=== PATIENT | female | born 1940 | race Caucasian/White ===

== ENCOUNTER 2016-10-01 16:35 | Observation (INO) | payer OTHER ==
[2016-10-01] MEDS ORDERED: HYDROmorphone 1 MG/ML Syringe IVPUSH PRN (17:54)
[2016-10-01] MEDS ORDERED: Acetaminophen 325 MG Tab PO PRN (17:54)
[2016-10-01] MEDS ORDERED: Magnesium Hydroxide 400 MG/5 ML Susp 30 ML Cup PO PRN (17:54)
[2016-10-01] MEDS ORDERED: Sodium Chloride 0.9% 10 ML Syringe FLUSH PRN (17:54)
[2016-10-01] MEDS ORDERED: Docusate Sodium 100 MG Cap PO PRN (17:54)
[2016-10-01] MEDS: Acetaminophen/HYDROcodone 325-5 MG Tab PO PRN (18:48)
[2016-10-01] MEDS: Ketorolac 30 MG/ML SDV IVPUSH PRN (19:53)
[2016-10-01] MEDS ORDERED: LORazepam 0.5 MG Tab PO PRN (20:18)
[2016-10-01] MEDS ORDERED: Zolpidem 5 MG Tab PO PRN (20:18)
[2016-10-02] MEDS: Ketorolac 30 MG/ML SDV IVPUSH PRN (07:54)
[2016-10-02] MEDS: Acetaminophen/HYDROcodone 325-5 MG Tab PO PRN (07:55)
[2016-10-02] MEDS ORDERED: Ketorolac 30 MG/ML SDV IVPUSH PRN (08:39)
[2016-10-02] MEDS: Sertraline 100 MG Tab PO SCH (09:08)
[2016-10-02] MEDS: Lisinopril 10 MG Tab PO SCH (09:08)
[2016-10-02] MEDS: Hydrochlorothiazide 12.5 MG Cap PO SCH (09:09)
[2016-10-02] MEDS: metFORMIN 500 MG Tab.ER PO SCH (09:09)
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
[2016-10-03] MEDS: Acetaminophen/HYDROcodone 325-5 MG Tab PO PRN ×2 (03:16→07:53)
[2016-10-03] MEDS: metFORMIN 500 MG Tab.ER PO SCH (07:54)
[2016-10-03] MEDS: Lisinopril 10 MG Tab PO SCH (07:55)
[2016-10-03] MEDS: Hydrochlorothiazide 12.5 MG Cap PO SCH (07:56)
[2016-10-03] MEDS: Sertraline 100 MG Tab PO SCH (07:56)
[2016-10-03 10:17] VITALS: BP 140/73
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
== END 2016-10-03 09:50 | disposition home or self-care (01) ==
LOC: CC.DI 16:35 → CC.MS 17:50
PROVIDERS: ADMIT Physician Assistant Medical; ATTEND Family Medicine
DX: S09.90XA Unspecified injury of head, initial encounter (principal); M54.5 Low back pain; R07.89 Other chest pain; Z88.1 Allergy status to other antibiotic agents; I10 Essential (primary) hypertension; G47.33 Obstructive sleep apnea (adult) (pediatric); Z90.49 Acquired absence of other specified parts of digestive tract; Z90.710 Acquired absence of both cervix and uterus; Z98.51 Tubal ligation status; Z96.659 Presence of unspecified artificial knee joint; Z72.0 Tobacco use; Z79.84 Long term (current) use of oral hypoglycemic drugs; Z79.899 Other long term (current) drug therapy; V87.7XXA Person injured in collision between other specified motor vehicles (traffic), initial encounter
CPT/HCPCS: 36415; 70450; 71020; 72125; 72128; 72131; 80048; 85025; 96374; 96376; 97161; A9270; G0378; J1885

== ENCOUNTER 2018-10-23 11:48 | Observation (INO) | payer MEDICARE, OTHER ==
[2018-10-23 12:13] LABS: CHLORIDE,CL 97 mEq/L (98-106); SODIUM,NA 134 mEq/L (136-145)
[2018-10-23] MEDS ORDERED: Ondansetron 4 MG/2 ML SDV IV ONE (12:15)
[2018-10-23] MEDS ORDERED: Sodium Chloride 0.9% 1,000 ML IV ONE (12:15)
[2018-10-23] MEDS ORDERED: Magnesium Sulfate/D5W 2 GM in Premix Bag 1 BAG IV ONE (13:21)
[2018-10-23] MEDS ORDERED: Ondansetron 4 MG/2 ML SDV IV PRN (13:21)
[2018-10-23] MEDS ORDERED: Acetaminophen 325 MG Tab PO PRN (13:21)
[2018-10-23] MEDS ORDERED: LORazepam 0.5 MG Tab PO PRN (13:27)
[2018-10-23] MEDS ORDERED: Zolpidem 5 MG Tab PO PRN (13:27)
[2018-10-23] MEDS: Pantoprazole 40 MG Vial IVPUSH SCH (14:28)
[2018-10-23] MEDS: Insulin Lispro 100 Units/ML 3 ML Vial SUBCUT SCH ×2 (17:28→20:45)
[2018-10-23] MEDS: Sodium Chloride 0.9% 1,000 ML IV SCH ×2 (23:30→23:31)
[2018-10-24] MEDS: Sodium Chloride 0.9% 1,000 ML IV SCH (06:17)
[2018-10-24] MEDS ORDERED: Non-Formulary Medication 1 Each (Losartan/Hydrochlorothiazide 1 TAB) PO SCH (08:00)
[2018-10-24 08:02] LABS: CHLORIDE,CL 105 mEq/L (98-106); SODIUM,NA 139 mEq/L (136-145)
[2018-10-24] MEDS: Losartan 25 MG Tab PO SCH (08:54)
[2018-10-24] MEDS: Hydrochlorothiazide 12.5 MG Cap PO SCH (08:55)
[2018-10-24] MEDS: Sertraline 100 MG Tab PO SCH (08:55)
[2018-10-24] MEDS: Insulin Lispro 100 Units/ML 3 ML Vial SUBCUT SCH ×4 (08:55→20:14)
[2018-10-24] MEDS: Pantoprazole 40 MG Vial IVPUSH SCH (09:29)
--- NOTE | 2018-10-24 14:57 | PCM.PN ---
- General Info Date of Service: 10/24/18 Functional Status: Reports: Pain Controlled, Tolerating Diet, Ambulating - Review of Systems General: Reports: No Symptoms HEENT: Reports: No Symptoms Pulmonary: Reports: No Symptoms Cardiovascular: Reports: No Symptoms Gastrointestinal: Reports: No Symptoms Genitourinary: Reports: No Symptoms Musculoskeletal: Reports: No Symptoms Skin: Reports: No Symptoms Neurological: Reports: No Symptoms Psychiatric: Reports: No Symptoms - Patient Data Vitals - Most Recent: Last Vital Signs Temp 97.5 F 10/24/18 12:00 Pulse 82 10/24/18 12:00 Resp 18 10/24/18 12:00 BP 141/56 H 10/24/18 12:00 Pulse Ox 99 10/24/18 12:00 Weight - Most Recent: 128 lb I&O - Last 24 Hours: Intake & Output 10/23/18 10/24/18 10/24/18 22:59 06:59 14:59 Intake Total 848 Balance 848 Lab Results Last 24 Hours: Laboratory Results - last 24 hr 10/23/18 10/23/18 10/24/18 Range/Units 17:00 20:12 05:11 WBC 4.3 L (5.0-10.0) 10^3/uL RBC 3.37 L (4.00-5.50) 10^6/uL Hgb 10.3 L (12.0-16.0) g/dL Hct 30.8 L (37.0-47.0) % MCV 91.4 (82.0-94.0) fL MCH 30.6 (27.0-32.0) pg MCHC 33.4 (33.0-38.0) g/dL RDW Coeff of Teja 13.8 (11.0-15.0) % Plt Count 219 (150-400) 10^3/uL Neut % (Auto) 57.4 (35-85) % Lymph % (Auto) 28.8 (10-55) % [place] % (Auto) 11.0 (0-16) % Eos % (Auto) 2.8 (0-5) % Baso % (Auto) 0 (0-3) % Neut # (Auto) 2.45 (1.80-7.00) 10^3/uL Lymph # (Auto) 1.23 (1.00-4.80) 10^3/uL [place] # (Auto) 0.47 (0.00-0.80) 10^3/uL Eos # (Auto) 0.12 (0.00-0.45) 10^3/uL Baso # (Auto) 0.00 10^3/uL Sodium (136-145) mEq/L Potassium (3.5-5.0) mEq/L Chloride (98-106) mEq/L Carbon Dioxide (21-32) mmol/L BUN (7-18) mg/dL Creatinine (0.6-1.0) mg/dL Est Cr Clr Drug Dosing mL/min Estimated GFR (MDRD) (>=60) mL/min Glucose (75-99) mg/dL POC Glucose 159 H (75-105) mg/dl Calcium (8.4-10.1) mg/dL Magnesium 2.1 (1.8-2.4) mg/dL 10/24/18 10/24/18 10/24/18 Range/Units 05:11 08:00 11:52 WBC (5.0-10.0) 10^3/uL RBC (4.00-5.50) 10^6/uL Hgb (12.0-16.0) g/dL Hct (37.0-47.0) % MCV (82.0-94.0) fL MCH (27.0-32.0) pg MCHC (33.0-38.0) g/dL RDW Coeff of Teja (11.0-15.0) % Plt Count (150-400) 10^3/uL Neut % (Auto) (35-85) % Lymph % (Auto) (10-55) % [place] % (Auto) (0-16) % Eos % (Auto) (0-5) % Baso % (Auto) (0-3) % Neut # (Auto) (1.80-7.00) 10^3/uL Lymph # (Auto) (1.00-4.80) 10^3/uL [place] # (Auto) (0.00-0.80) 10^3/uL Eos # (Auto) (0.00-0.45) 10^3/uL Baso # (Auto) 10^3/uL Sodium 139 (136-145) mEq/L Potassium 3.6 (3.5-5.0) mEq/L Chloride 105 (98-106) mEq/L Carbon Dioxide 23 (21-32) mmol/L BUN 8 (7-18) mg/dL Creatinine 0.9 (0.6-1.0) mg/dL Est Cr Clr Drug Dosing 42.06 mL/min Estimated GFR (MDRD) > 60 (>=60) mL/min Glucose 100 H (75-99) mg/dL POC Glucose 100 136 H (75-105) mg/dl Calcium 7.5 L (8.4-10.1) mg/dL Magnesium 1.4 L (1.8-2.4) mg/dL Heri Results Last 24 Hours: Microbiology 10/23/18 20:00 Stool for WBCs - Final Stool / Feces NO WBC SEEN REFERENCE RANGE: NO WBC SEEN 10/23/18 20:00 C. difficile DNA Amplification - Final Stool / Feces Med Orders - Current: Current Medications Acetaminophen (Tylenol) 650 mg PO Q4H PRN PRN Reason: Pain (Mild 1-3)/fever Hydrochlorothiazide (Hydrochlorothiazide) 12.5 mg PO DAILY [facility] Last Admin: 10/24/18 08:55 Dose: Not Given Sodium Chloride (Normal Saline) 1,000 mls @ 125 mls/hr IV ASDIRECTED [facility] Last Admin: 10/24/18 06:17 Dose: 125 mls/hr Insulin Human Lispro (Humalog) 0 unit SUBCUT 0800,1200,1730,2100 [facility]; Protocol Lorazepam (Ativan) 0.5 mg PO Q8H PRN PRN Reason: Anxiety Losartan Potassium (Cozaar) 50 mg PO DAILY [facility] Last Admin: 10/24/18 08:54 Dose: Not Given Magnesium Oxide (Magnesium Oxide) 250 mg PO QID [facility] Last Admin: 10/24/18 12:00 Dose: 250 mg Ondansetron HCl (Zofran) 4 mg IV Q4H PRN PRN Reason: Nausea/Vomiting Pantoprazole Sodium (Protonix Iv) 40 mg IVPUSH DAILY [facility] Last Admin: 10/24/18 09:29 Dose: 40 mg Sertraline HCl (Zoloft) 100 mg PO DAILY [facility] Last Admin: 10/24/18 08:55 Dose: Not Given Zolpidem Tartrate (Ambien) 5 mg PO BEDTIME PRN PRN Reason: Insomnia Discontinued Medications Sodium Chloride (Normal Saline) 1,000 mls @ 250 mls/hr IV ONETIME ONE Stop: 10/23/18 16:14 Last Admin: 10/23/18 12:30 Dose: 250 mls/hr Magnesium Sulfate/Dextrose 2 (gm/ Premix) 200 mls @ 100 mls/hr IV ONETIME ONE Stop: 10/23/18 15:20 Last Admin: 10/23/18 13:53 Dose: 100 mls/hr Insulin Human Lispro (Humalog) 0 unit SUBCUT QIDACANDBED [facility]; Protocol Last Admin: 10/23/18 20:45 Dose: Not Given Insulin Human Lispro (Humalog) 0 unit SUBCUT 0800,1200,1430,2100 [facility]; Protocol Last Admin: 10/24/18 12:00 Dose: Not Given Magnesium Oxide (Magnesium Oxide) 250 mg PO ONETIME ONE Stop: 10/24/18 09:16 Last Admin: 10/24/18 09:29 Dose: 250 mg Non-Formulary Medication (Losartan/Hydrochlorothiazide) 1 tab PO DAILY [facility] Ondansetron HCl (Zofran) 4 mg IV ONETIME ONE Stop: 10/23/18 12:16 Last Admin: 10/23/18 12:30 Dose: 4 mg - Exam General: Alert, Oriented, Cooperative, No Acute Distress Neck: Supple Lungs: Normal Respiratory Effort, Crackles Cardiovascular: Regular Rate, Regular Rhythm, No Murmurs GI/Abdominal Exam: Normal Bowel Sounds, Soft, Non-Tender, No Organomegaly, No Distention, No Mass, Pelvis Stable Back Exam: Normal Inspection, Full Range of Motion. No: CVA Tenderness (L), CVA Tenderness (R) Extremities: Normal Inspection, Normal Range of Motion, Non-Tender, No Pedal Edema, Normal Capillary Refill Peripheral Pulses: 2+: Radial (L), Radial (R), Posterior Tibial (L), Posterior Tibial (R), Dorsalis Pedis (L), Dorsalis Pedis (R) Skin: Warm, Dry, Intact Neurological: No New Focal Deficit Psy/Mental Status: Alert, Normal Affect, Normal Mood - Problem List Review Problem List Initiated/Reviewed/Updated: Yes - My Orders Last 24 Hours: My Active Orders 10/24/18 12:00 Magnesium Oxide 250 mg PO QID 10/25/18 05:00 CBC WITH AUTO DIFF [HEME] DAILY COMPREHENSIVE METABOLIC PN,CMP [CHEM] DAILY 10/25/18 22:12 MAGNESIUM [CHEM] DAILY 10/26/18 05:00 CBC WITH AUTO DIFF [HEME] DAILY COMPREHENSIVE METABOLIC PN,CMP [CHEM] DAILY 10/26/18 22:12 MAGNESIUM [CHEM] DAILY - Plan Plan:: This patient is a 78 year old female that was admitted yesterday for Low Mg. I reviewed labs, patient was also dehydrated. She reports for 1 week having diarrhea and feeling generally weak. Patient reports members of her family also had the stomach bug that lasted several days. Patient reports today that she is feeling much better. She reports she does not have diarrhea and has more energy. She reports today is the best she has felt in the last week. Patient Mg level at admit was 1.0. She was given MG IV and her Mg elevated yesterday to 2.1. However, the patient labs showed dehydration, so fluids were kept going and patient admitted. Patient today after fluids has lower Mg of 1.4. and lower Hgb from 12.4 yesterday to 10.3 today. I assume this is due to fluid replacement. Her labs such as Na, K, Cl, CR are now WNL. The patient has not had her hydrochlorothiazide yesterday or today. Her Bp has been good. Patient also had Metformin DCd. BS been good. Will continue patient admit until tomorrow. Started PO Mg. Will redraw Mg in morning. EKG, NSR. Plan to discharge tomorrow.
[2018-10-25] MEDS: Pantoprazole 40 MG Vial IVPUSH SCH (07:52)
[2018-10-25 08:08] LABS: CHLORIDE,CL 104 mEq/L (98-106); SODIUM,NA 139 mEq/L (136-145)
[2018-10-25] MEDS: Sertraline 100 MG Tab PO SCH (08:18)
[2018-10-25] MEDS: Insulin Lispro 100 Units/ML 3 ML Vial SUBCUT SCH ×2 (08:18→11:54)
[2018-10-25] MEDS: Hydrochlorothiazide 12.5 MG Cap PO SCH (08:18)
[2018-10-25] MEDS: Losartan 25 MG Tab PO SCH (08:18)
--- NOTE | 2018-10-25 10:53 | PCM.DCSUM1 ---
Discharge Summary - Hospital Course HPI Initial Comments: This patient was admitted for diarrhea, dehydration, and low magnesium. The patient today reports that she feels great. She reports only one episode of diarrhea while here and that was last night. Patient reports that she has energy and feels like she is ready to go home today. Patient BPs while here have been 120s-130s over 40s. The patient BS have also been 120a-130s. The patient the past couple of days during admission has not had her Losartan/ hydrochlorothiazide or Metformin. Her Mg yesterday was 1.4, today is 1.5 after starting Mg PO. The fluids were discontinued yesterday and her hydration remains stable. She is eating and drinking without difficulty. I will discharge the patient today, she is told to see her PCP Friday. She reports she has a hair appointment Friday, so will see her PCP on Friday. At discharge I will not restart the patient back on her BP med due to maintaining good BP while admitted and to eliminate her diuretic due to possible cause of low Mg. Also, her Metformin was D/Cd by admitting provider, I also will D/C this med at discharge. Patient educated that this could be temporary and she should consult with her PCP on visit to see what meds may be prescribed. Also educated patient about taking Mg prescription and seeing PCP for this followup as well. - Discharge Data Discharge Date: 10/25/18 Discharge Disposition: Home, Self-Care 01 Condition: Good - Patient Instructions Diet: Usual Diet as Tolerated Activity: As Tolerated, No Strenuous Activities, Rest and Relax Today Driving: May Drive Today Showering/Bathing: May Shower Notify Provider of: Fever, Nausea and/or Vomiting - Discharge Plan *PRESCRIPTION DRUG MONITORING PROGRAM REVIEWED*: Not Applicable *COPY OF PRESCRIPTION DRUG MONITORING REPORT IN PATIENT ANGEL: Not Applicable Home Medications: Home Meds Sertraline HCl [Zoloft] 100 mg PO DAILY 01/19/15 [History] LORazepam 1 mg PO Q8H PRN 10/01/16 [History] Zolpidem [Ambien] 5 mg PO BEDTIME PRN 10/01/16 [History] metFORMIN HCl [Metformin HCl ER] 500 mg PO DAILY 10/01/16 [History] Cholecalciferol (Vitamin D3) [Vitamin D3] 1 tab PO DAILY 10/23/18 [History] Losartan/Hydrochlorothiazide [Losartan-HCTZ 50-12.5 MG] 1 tab PO DAILY 10/23/18 [History] Patient Handouts: Hypomagnesemia, Diarrhea, Adult, [id number], Dehydration, Adult, [id number] Referrals: Len Galindo MD [Primary Care Provider] - - Discharge Summary/Plan Comment DC Time >30 min.: No Discharge Summary/Plan Comment: Followup with Dr. Galindo Friday Return to the Emergency department for abd pain, vomiting, chest pain, shortness of breath, or any other concerns. Increase fluids Magnesium 250mg 1 pill four times a day #12 take home See provider for possible prescription if would like to continue magnesium - General Info Date of Service: 10/25/18 Functional Status: Reports: Pain Controlled, Tolerating Diet, Ambulating - Review of Systems General: Reports: No Symptoms. Denies: Weakness, Fatigue, Malaise, Appetite HEENT: Reports: No Symptoms Pulmonary: Reports: No Symptoms Cardiovascular: Reports: No Symptoms Gastrointestinal: Reports: Diarrhea (x1 last night). Denies: Abdominal Pain, Decreased Appetite, Difficulty Swallowing, Nausea, Vomiting Genitourinary: Reports: No Symptoms Musculoskeletal: Reports: No Symptoms Skin: Reports: No Symptoms Neurological: Reports: No Symptoms Psychiatric: Reports: No Symptoms - Patient Data Vitals - Most Recent: Last Vital Signs Temp 98 F 10/25/18 08:00 Pulse 78 10/25/18 08:00 Resp 18 10/25/18 08:00 BP 145/60 H 10/25/18 08:00 Pulse Ox 99 10/25/18 08:00 Weight - Most Recent: 128 lb Lab Results - Last 24 hrs: Laboratory Results - last 24 hr 10/24/18 10/24/18 10/24/18 Range/Units 11:52 17:06 20:11 WBC (5.0-10.0) 10^3/uL RBC (4.00-5.50) 10^6/uL Hgb (12.0-16.0) g/dL Hct (37.0-47.0) % MCV (82.0-94.0) fL MCH (27.0-32.0) pg MCHC (33.0-38.0) g/dL RDW Coeff of Teja (11.0-15.0) % Plt Count (150-400) 10^3/uL Neut % (Auto) (35-85) % Lymph % (Auto) (10-55) % [place] % (Auto) (0-16) % Eos % (Auto) (0-5) % Baso % (Auto) (0-3) % Neut # (Auto) (1.80-7.00) 10^3/uL Lymph # (Auto) (1.00-4.80) 10^3/uL [place] # (Auto) (0.00-0.80) 10^3/uL Eos # (Auto) (0.00-0.45) 10^3/uL Baso # (Auto) 10^3/uL Sodium (136-145) mEq/L Potassium (3.5-5.0) mEq/L Chloride (98-106) mEq/L Carbon Dioxide (21-32) mmol/L BUN (7-18) mg/dL Creatinine (0.6-1.0) mg/dL Est Cr Clr Drug Dosing mL/min Estimated GFR (MDRD) (>=60) mL/min Glucose (75-99) mg/dL POC Glucose 136 H 121 H 144 H (75-105) mg/dl Calcium (8.4-10.1) mg/dL Magnesium (1.8-2.4) mg/dL Total Bilirubin (0.0-1.0) mg/dL AST (15-37) U/L ALT (12-78) U/L Alkaline Phosphatase (46-116) U/L Total Protein (6.4-8.2) g/dL Albumin (3.4-5.0) g/dL 10/25/18 10/25/18 Range/Units 05:00 07:00 WBC 4.6 L (5.0-10.0) 10^3/uL RBC 3.41 L (4.00-5.50) 10^6/uL Hgb 10.5 L (12.0-16.0) g/dL Hct 31.3 L (37.0-47.0) % MCV 91.8 (82.0-94.0) fL MCH 30.8 (27.0-32.0) pg MCHC 33.5 (33.0-38.0) g/dL RDW Coeff of Teja 13.8 (11.0-15.0) % Plt Count 240 (150-400) 10^3/uL Neut % (Auto) 59.8 (35-85) % Lymph % (Auto) 27.1 (10-55) % [place] % (Auto) 10.1 (0-16) % Eos % (Auto) 2.8 (0-5) % Baso % (Auto) 0.2 (0-3) % Neut # (Auto) 2.73 (1.80-7.00) 10^3/uL Lymph # (Auto) 1.24 (1.00-4.80) 10^3/uL [place] # (Auto) 0.46 (0.00-0.80) 10^3/uL Eos # (Auto) 0.13 (0.00-0.45) 10^3/uL Baso # (Auto) 0.01 10^3/uL Sodium 139 (136-145) mEq/L Potassium 3.7 (3.5-5.0) mEq/L Chloride 104 (98-106) mEq/L Carbon Dioxide 26 (21-32) mmol/L BUN 6 L (7-18) mg/dL Creatinine 0.9 (0.6-1.0) mg/dL Est Cr Clr Drug Dosing 42.06 mL/min Estimated GFR (MDRD) > 60 (>=60) mL/min Glucose 111 H (75-99) mg/dL POC Glucose (75-105) mg/dl Calcium 8.5 (8.4-10.1) mg/dL Magnesium 1.5 L (1.8-2.4) mg/dL Total Bilirubin 0.2 (0.0-1.0) mg/dL AST 16 (15-37) U/L ALT 26 (12-78) U/L Alkaline Phosphatase 80 (46-116) U/L Total Protein 6.1 L (6.4-8.2) g/dL Albumin 2.8 L (3.4-5.0) g/dL DE[facility] Results - Last 24 hrs: Microbiology 10/24/18 20:26 C. difficile DNA Amplification - Final Stool / Feces NEGATIVE CDIFF BY DNA REFERENCE RANGE: NEGATIVE 10/23/18 20:00 Stool for WBCs - Final Stool / Feces NO WBC SEEN REFERENCE RANGE: NO WBC SEEN 10/23/18 20:00 C. difficile DNA Amplification - Final Stool / Feces Med Orders - Current: Current Medications Acetaminophen (Tylenol) 650 mg PO Q4H PRN PRN Reason: Pain (Mild 1-3)/fever Hydrochlorothiazide (Hydrochlorothiazide) 12.5 mg PO DAILY [facility] Last Admin: 10/25/18 08:18 Dose: Not Given Insulin Human Lispro (Humalog) 0 unit SUBCUT 0800,1200,1730,2100 [facility]; Protocol Last Admin: 10/25/18 08:18 Dose: Not Given Lorazepam (Ativan) 0.5 mg PO Q8H PRN PRN Reason: Anxiety Losartan Potassium (Cozaar) 50 mg PO DAILY [facility] Last Admin: 10/25/18 08:18 Dose: Not Given Magnesium Oxide (Magnesium Oxide) 250 mg PO QID [facility] Last Admin: 10/25/18 07:52 Dose: 250 mg Ondansetron HCl (Zofran) 4 mg IV Q4H PRN PRN Reason: Nausea/Vomiting Pantoprazole Sodium (Protonix Iv) 40 mg IVPUSH DAILY [facility] Last Admin: 10/25/18 07:52 Dose: 40 mg Sertraline HCl (Zoloft) 100 mg PO DAILY [facility] Last Admin: 10/25/18 08:18 Dose: Not Given Zolpidem Tartrate (Ambien) 5 mg PO BEDTIME PRN PRN Reason: Insomnia Discontinued Medications Sodium Chloride (Normal Saline) 1,000 mls @ 250 mls/hr IV ONETIME ONE Stop: 10/23/18 16:14 Last Admin: 10/23/18 12:30 Dose: 250 mls/hr Magnesium Sulfate/Dextrose 2 (gm/ Premix) 200 mls @ 100 mls/hr IV ONETIME ONE Stop: 10/23/18 15:20 Last Admin: 10/23/18 13:53 Dose: 100 mls/hr Sodium Chloride (Normal Saline) 1,000 mls @ 125 mls/hr IV ASDIRECTED [facility] Last Admin: 10/24/18 06:17 Dose: 125 mls/hr Insulin Human Lispro (Humalog) 0 unit SUBCUT QIDACANDBED [facility]; Protocol Last Admin: 10/23/18 20:45 Dose: Not Given Insulin Human Lispro (Humalog) 0 unit SUBCUT 0800,1200,1430,2100 [facility]; Protocol Last Admin: 10/24/18 12:00 Dose: Not Given Magnesium Oxide (Magnesium Oxide) 250 mg PO ONETIME ONE Stop: 10/24/18 09:16 Last Admin: 10/24/18 09:29 Dose: 250 mg Non-Formulary Medication (Losartan/Hydrochlorothiazide) 1 tab PO DAILY [facility] Ondansetron HCl (Zofran) 4 mg IV ONETIME ONE Stop: 10/23/18 12:16 Last Admin: 10/23/18 12:30 Dose: 4 mg - Exam General: Reports: Alert, Oriented, Cooperative, No Acute Distress Neck: Reports: Supple Lungs: Reports: Clear to Auscultation, Normal Respiratory Effort Cardiovascular: Reports: Regular Rate, Regular Rhythm, No Murmurs GI/Abdominal Exam: Normal Bowel Sounds, Soft, Non-Tender, No Organomegaly, No Distention, No Mass, Pelvis Stable Back Exam: Reports: Normal Inspection, Full Range of Motion. Denies: CVA Tenderness (L), CVA Tenderness (R) Extremities: Normal Inspection, Normal Range of Motion, Non-Tender, No Pedal Edema, Normal Capillary Refill Skin: Reports: Warm, Dry, Intact Neurological: Reports: No New Focal Deficit, Normal Gait, Normal Speech Psy/Mental Status: Reports: Alert, Normal Affect, Normal Mood
[2018-10-25 12:03] VITALS: BP 130/57
== END 2018-10-25 11:04 | disposition home or self-care (01) ==
LOC: CC.ACU 11:48 → CC.MS 12:43 → UNDOADMOB 12:43 → UNDODISOB 12:51 → UNDOADMOB 13:18 → CC.MS 13:18 → UNDOADMOB 13:21 → CC.MS 13:21 → UNDODISOB 10-25 11:04
PROVIDERS: ADMIT Physician Assistant Medical; ATTEND Family Medicine
DX: R19.7 Diarrhea, unspecified (principal); E86.0 Dehydration; E83.42 Hypomagnesemia
CPT/HCPCS: 36415; 74019; 80048; 80053; 81001; 82962; 83605; 83690; 83735; 85025; 86140; 87045; 87046; 87493; 89055; 93005; 96361; 96374; 96375; 96376; A4217; A9270-GY; C9113; G0378; J2405; J3475; J7030

== ENCOUNTER → 2020-09-01 | Day surgery (SDC) | payer MEDICARE, OTHER ==
[~2020-09-01] MED LIST: Lactated Ringers 1,000 ML IV SCH
[2020-09-01 08:39] VITALS: BP 150/59; PULSE 81
--- NOTE | 2020-09-01 14:28 | OR ---
DATE OF OPERATION: 09/01/2020 PREOPERATIVE DIAGNOSIS: WEIGHT LOSS, POOR APPETITE. POSTOPERATIVE DIAGNOSIS: WEIGHT LOSS, POOR APPETITE. SURGEON: Len Galindo MD PROCEDURE: DIAGNOSTIC ESOPHAGOGASTRODUODENOSCOPY WITH BIOPSY X1, JARROD. ANESTHESIA: MAC. COMPLICATIONS: None. SPECIMEN: 1. Distal antral biopsy x1. 2. Antral JARROD. FINDINGS: 1. Full-length diagnostic EGD. 2. Minimal chronic antral gastritis distally. RECOMMENDATIONS: Medical followup. INDICATIONS: The patient has been having ongoing issues with weight loss without an identifiable etiology. She does have a poor appetite and we elected to proceed with diagnostic EGD. DESCRIPTION OF PROCEDURE: The patient was prepped and draped, placed in a left lateral decubitus position with the head of the bed elevated. A lubricated Olympus gastroscope was inserted over a bit, advanced to the cricopharyngeus area and easily intubated into the esophagus. The esophageal lining was benign in its entire course with a crisp Z-line at 36 to 37 cm. There was no hernia. There was no spontaneous reflux, distal esophagitis, stricturing, ulceration, or [place] changes. The scope was advanced into the stomach and through the pylorus and into the 2nd portion of the duodenum. This and the duodenal bulb were benign. With the scope brought back into the stomach and retroflexed, the upper fundus and cardia appeared completely unremarkable. Upon straightening, the rest of the fundus and most of the antrum were unremarkable as well. The most distal portion of the antrum, probably its distal 3rd and in and around the pylorus showed some very mild chronic gastritis changes. We did do a biopsy of this along with a JARROD from an unaffected portion of the antrum. Air was then suctioned, scope removed without complication. MARJAN/NATHANIEL /[id number]
== END ==
LOC: CC.SDS 07:12
PROVIDERS: ATTEND Family Medicine
DX: K29.50 Unspecified chronic gastritis without bleeding (principal); R63.4 Abnormal weight loss; I10 Essential (primary) hypertension; E78.00 Pure hypercholesterolemia, unspecified; G47.33 Obstructive sleep apnea (adult) (pediatric); E11.9 Type 2 diabetes mellitus without complications; Z88.8 Allergy status to other drugs, medicaments and biological substances; Z79.84 Long term (current) use of oral hypoglycemic drugs; Z79.899 Other long term (current) drug therapy; Z98.890 Other specified postprocedural states
CPT/HCPCS: 00731; 43239; 87081; 88305; 88342; J7120

== ENCOUNTER 2023-01-25 17:34 | Emergency (ER) | payer MEDICARE, OTHER ==
[2023-01-25 18:23] LABS: BASOPHILS ABSOLUTE AUTO 0.02 10^3/uL (0.00-0.50); BASOPHILS PERCENT AUTO 0.3 % (0-1); EOSINOPHILS ABSOLUTE AUTO 0.14 10^3/uL (0.00-1.50); EOSINOPHILS PERCENT AUTO 2.2 % (0-6); HEMATOCRIT 32.5 % (37.0-47.0); HEMOGLOBIN 11.2 g/dL (12.0-16.0); IMMATURE GRAN ABSOLUTE AUTO 0.05 10^3/uL (0.00-0.49); IMMATURE GRAN PERCENT AUTO 0.8 % (0.0-4.9); LYMPHOCYTES ABSOLUTE AUTO 1.08 10^3/uL (0.60-5.00); LYMPHOCYTES PERCENT AUTO 16.8 % (24-44); MEAN CORPUSCULAR HEMOGLOBIN 31.4 pg (27.0-32.0); MEAN CORPUSCULAR HGB CONC 34.5 g/dL (32.0-36.0); MONOCYTES ABSOLUTE AUTO 0.49 10^3/uL (0.00-1.50); MONOCYTES PERCENT AUTO 7.6 % (0-10); NEUTROPHILS ABSOLUTE AUTO 4.63 x10^3/uL (1.80-8.00); NEUTROPHILS PERCENT AUTO 72.3 % (41-71); PLATELET COUNT,PLT 230 10^3/uL (150-400); RED BLOOD CELL COUNT 3.57 x10^6/uL (4.00-5.50); WHITE BLOOD CELL COUNT,WBC 6.4 10^3/uL (4.0-11.0)
[2023-01-25] MEDS: cloNIDine 0.1 MG Tab PO STA (18:34)
[2023-01-25 18:37] LABS: BILIRUBIN TOTAL 0.2 mg/dL (0.0-1.0); CALCIUM 8.8 mg/dL (8.4-10.1); CREATININE 1.2 mg/dL (0.6-1.0); EST CRCL DRUG DOSING (CG) 29.57 mL/min; POTASSIUM,K 3.8 mEq/L (3.5-5.0); PROTEIN TOTAL,TP 6.6 g/dL (6.4-8.2)
[2023-01-25 19:22] VITALS: BP 184/75; PULSE 78
== END 2023-01-25 19:23 | disposition home or self-care (01) ==
LOC: CC.ED 17:34
DX: I16.9 Hypertensive crisis, unspecified (principal); I10 Essential (primary) hypertension; E78.00 Pure hypercholesterolemia, unspecified; E11.9 Type 2 diabetes mellitus without complications; Z79.84 Long term (current) use of oral hypoglycemic drugs; Z79.02 Long term (current) use of antithrombotics/antiplatelets; Z79.899 Other long term (current) drug therapy; Z88.1 Allergy status to other antibiotic agents
CPT/HCPCS: 36415; 70450; 80053; 85025; 93005; 93010; 99284; A9270-GY